=== PATIENT | male | born 1935 | race Caucasian/White ===

== ENCOUNTER 2020-08-25 10:28 | Inpatient (IN) ==
[2020-08-25] MEDS ORDERED: HYDROmorphone 2 MG/1 ML VIAL IV STA (10:52)
[2020-08-25] MEDS ORDERED: ONDANSETRON 4 MG/2 ML VIAL IV STA (10:52)
[2020-08-25 11:02] LABS: Basophils % 0.6 % (0.0-0.8); Eosinophils # 0.4 10*3/uL (0.0-0.87); Eosinophils % 5.3 % (0.00-10.9); Hematocrit 33.7 VOL% (42.0-52.0); Hemoglobin 11.8 GM/DL (14.0-18.0); Immature Granulocytes % 0.4 %; Immature Granulocytes Absolute 0.03 #; Lymphocytes % 14.4 % (21.2-54.2); Mean Corpuscular Volume 93.9 FL (87-102); Mean Platelet Volume 9.4 FL (9.6-12.0); Monocytes % 10.1 % (1.7-12.7); Neutrophils % 69.2 % (38.7-73.9); Platelet Count 153 T/CUMM (130-400); Red Blood Count 3.59 MC/CUMM (3.8-5.5); White Blood Count 6.8 T/CUMM (4-12)
[2020-08-25 11:09] LABS: INR 1.1; PT Patient Result 12.1 SECS (9.8-11.9); Partial Thromboplastin Time 32.5 SECS (23.9-33.8)
[2020-08-25 11:19] LABS: Albumin 3.2 G/DL (3.4-5.0); Bilirubin,Total 0.8 MG/DL (0.2-1.0); Calcium 8.6 MG/DL (8.5-10.1); Osmolality,Calculated 270.4 MOS/KG (273-304); Potassium 4.4 MMOL/L (3.5-5.1); Total Protein 5.9 G/DL (6.4-8.3)
[2020-08-25] MEDS ORDERED: DEXTROSE 50% 25 GM/50 ML VIAL IV PRN (12:17)
[2020-08-25] MEDS ORDERED: GLUCAGON 1 MG VIAL IM PRN (12:17)
[2020-08-25] MEDS ORDERED: hydrALAZINE 20 MG/1 ML VIAL IV PRN (12:17)
[2020-08-25] MEDS: SODIUM CHLORIDE 0.9% 1,000 ML IV SCH ×2 (16:09→22:18)
[2020-08-25] MEDS: MORPHINE 4 MG/1 ML VIAL IV PRN (16:19)
[2020-08-25] MEDS: ONDANSETRON 4 MG/2 ML VIAL IV PRN ×2 (16:19→22:01)
[2020-08-25 23:59] LABS: Bacteria,Urine Occasional /HPF (Few); Bilirubin,Urine Negative (Negative); Blood, Urine Negative (Negative); Glucose,Urine (UA) Negative (Negative); Hyaline Casts,Urine 8 /LPF (0-3); Ketones,Urine 5 mg/dL (Negative); Mucus,Urine Occasional /LPF (Occasional); Nitrite,Urine Negative (Negative); Protein,Urine Negative; RBC,Urine 5 /HPF (0-4); Urine Appearance CLEAR (Clear); Urine Color Yellow (Yellow); Urine Specific Gravity 1.014 (1.001-1.035); Urine Urobilinogen < 2.0 EU/DL (0.2-1.0); WBC,Urine <1 /HPF (0-6)
[2020-08-26] MEDS: MORPHINE 4 MG/1 ML VIAL IV PRN (01:57)
[2020-08-26] MEDS: ONDANSETRON 4 MG/2 ML VIAL IV PRN (04:03)
[2020-08-26 05:50] LABS: Basophils % 0.1 % (0.0-0.8); Hematocrit 35.9 VOL% (42.0-52.0); Hemoglobin 12.9 GM/DL (14.0-18.0); Immature Granulocytes % 0.8 %; Immature Granulocytes Absolute 0.12 #; Lymphocytes # 0.9 10*3/uL (1.4-4.0); Lymphocytes % 5.9 % (21.2-54.2); Mean Corpuscular HGB Conc 35.9 GM/DL (32-36); Mean Corpuscular Volume 91.6 FL (87-102); Mean Platelet Volume 9.2 FL (9.6-12.0); Monocytes % 5.5 % (1.7-12.7); Neutrophils % 87.7 % (38.7-73.9); Platelet Count 182 T/CUMM (130-400); Red Blood Count 3.92 MC/CUMM (3.8-5.5); Red Cell Distribution Width 12.9 % (9.3-17.3); White Blood Count 15.3 T/CUMM (4-12)
[2020-08-26 06:26] LABS: Albumin 3.5 G/DL (3.4-5.0); Bilirubin,Total 1.9 MG/DL (0.2-1.0); Osmolality,Calculated 274.4 MOS/KG (273-304); Thyroid Stimulating Hormone 0.897 uIU/ml (0.358-3.74); Total Protein 6.7 G/DL (6.4-8.3)
[2020-08-26] MEDS ORDERED: ceFAZolin 2,000 MG in PREMIX 1 EACH IV ONE (07:15)
[2020-08-26] MEDS ORDERED: fentaNYL 100 MCG/2 ML VIAL ONE (08:25)
[2020-08-26] MEDS ORDERED: SUCCINYLCHOLINE 200 MG/10 ML VIAL ONE (08:29)
[2020-08-26] MEDS ORDERED: LIDOCAINE 2% 5 ML VIAL ONE (08:29)
[2020-08-26] MEDS ORDERED: ROCURONIUM 50 MG/5 ML VIAL IV ONE (08:29)
[2020-08-26] MEDS ORDERED: FAMOTIDINE 20 MG/2 ML VIAL IV ONE (08:30)
[2020-08-26] MEDS ORDERED: ONDANSETRON 4 MG/2 ML VIAL IV ONE (08:31)
[2020-08-26] MEDS ORDERED: SCOPOLAMINE 1.5 MG PATCH TRANSDERM ONE (08:58)
[2020-08-26] MEDS ORDERED: propofoL 200 MG/20 ML VIAL IV ONE (09:01)
[2020-08-26] MEDS ORDERED: ETOMIDATE 40 MG/20 ML VIAL IV ONE (09:01)
[2020-08-26] MEDS ORDERED: oxyCODONE/ACETAMINOPHEN 5-325 MG TABLET PO PRN (09:24)
[2020-08-26] MEDS ORDERED: MAGNESIUM HYDROXIDE SUSP 30 ML UDCUP PO PRN (09:24)
[2020-08-26] MEDS ORDERED: PHENYLEPHRINE 1 MG/10 ML SYRINGE IV ONE ×3 (09:25→10:05)
[2020-08-26] MEDS ORDERED: DEXAMETHASONE 4 MG/1 ML VIAL ONE (09:28)
[2020-08-26] MEDS ORDERED: ONDANSETRON 4 MG/2 ML VIAL ONE (09:28)
[2020-08-26] MEDS ORDERED: SEVOFLURANE 1 UNIT/15 MINUTE INH ONE (09:49)
[2020-08-26] MEDS ORDERED: SUGAMMADEX 200 MG/2 ML VIAL IV ONE (09:51)
[2020-08-26] MEDS ORDERED: BACITRACIN OINT 0.9 GM PACK TOP ONE (09:54)
[2020-08-26] MEDS ORDERED: LACTATED RINGERS 1,000 ML IV ONE (10:06)
[2020-08-26] MEDS ORDERED: MEPERIDINE 25 MG/1 ML VIAL IV PRN (10:39)
[2020-08-26] MEDS ORDERED: ONDANSETRON 4 MG/2 ML VIAL IV PRN (10:39)
[2020-08-26] MEDS ORDERED: PROMETHAZINE INJ 25 MG in SODIUM CHLORIDE 0.9% 50 ML IV PRN (10:39)
[2020-08-26] MEDS ORDERED: diphenhydrAMINE 50 MG/1 ML VIAL IV PRN (10:39)
[2020-08-26 10:47] LABS: Bilirubin,Urine Negative (Negative); Blood, Urine Large mg/dL (Negative); Glucose,Urine (UA) 50 mg/dL (Negative); Ketones,Urine 20 mg/dL (Negative); Nitrite,Urine Negative (Negative); Protein,Urine Negative; RBC,Urine 326 /HPF (0-4); Squamous Epithelial Cell,Urine Occasional /HPF (0-10); Urine Appearance CLEAR (Clear); Urine Color Yellow (Yellow); Urine Specific Gravity 1.013 (1.001-1.035); WBC,Urine 2 /HPF (0-6)
[2020-08-26] MEDS ORDERED: clonazePAM 0.5 MG TABLET PO PRN (12:05)
[2020-08-26] MEDS: PANTOPRAZOLE 40 MG TABLET PO SCH (12:58)
[2020-08-26] MEDS: ceFAZolin 2,000 MG in PREMIX 1 EACH IV SCH (16:00)
[2020-08-26] MEDS: CITALOPRAM 20 MG TABLET PO SCH (16:00)
[2020-08-26] MEDS: DOCUSATE SODIUM 100 MG CAPSULE PO SCH (20:31)
[2020-08-26] MEDS: LACTATED RINGERS 1,000 ML IV SCH (21:30)
[2020-08-27] MEDS ORDERED: ceFAZolin 2,000 MG in PREMIX 1 EACH IV SCH (00:30)
[2020-08-27] MEDS: ceFAZolin 2,000 MG in PREMIX 1 EACH IV SCH (00:38)
[2020-08-27 05:34] LABS: Calcium 8.6 MG/DL (8.5-10.1); Osmolality,Calculated 273.2 MOS/KG (273-304); Potassium 3.8 MMOL/L (3.5-5.1)
[2020-08-27 05:40] LABS: Basophils % 0.1 % (0.0-0.8); Hematocrit 28.1 VOL% (42.0-52.0); Immature Granulocytes % 0.6 %; Immature Granulocytes Absolute 0.09 #; Lymphocytes # 1.2 10*3/uL (1.4-4.0); Lymphocytes % 7.8 % (21.2-54.2); Mean Corpuscular HGB Conc 35.9 GM/DL (32-36); Mean Corpuscular Volume 91.8 FL (87-102); Mean Platelet Volume 9.6 FL (9.6-12.0); Neutrophils % 80.5 % (38.7-73.9); Platelet Count 166 T/CUMM (130-400); Red Cell Distribution Width 13.1 % (9.3-17.3); White Blood Count 14.9 T/CUMM (4-12)
[2020-08-27 05:42] LABS: Hemoglobin 10.1 GM/DL (14.0-18.0); Red Blood Count 3.06 MC/CUMM (3.8-5.5)
[2020-08-27] MEDS: FONDAPARINUX 2.5 MG/0.5 ML SYRINGE SUBCUT SCH (05:46)
[2020-08-27] MEDS: LEVOFLOXACIN INJ 500 MG in PREMIX 1 EACH IV SCH (14:08)
[2020-08-27] MEDS: DOCUSATE SODIUM 100 MG CAPSULE PO SCH ×2 (14:09→20:54)
[2020-08-27] MEDS: CITALOPRAM 20 MG TABLET PO SCH (14:09)
[2020-08-27] MEDS: PANTOPRAZOLE 40 MG TABLET PO SCH (14:10)
[2020-08-27] MEDS: ONDANSETRON 4 MG/2 ML VIAL IV PRN (17:02)
[2020-08-27] MEDS: LACTATED RINGERS 1,000 ML IV SCH (17:22)
[2020-08-28] MEDS: FONDAPARINUX 2.5 MG/0.5 ML SYRINGE SUBCUT SCH (05:29)
[2020-08-28 06:09] LABS: Basophils % 0.1 % (0.0-0.8); Eosinophils % 0.1 % (0.00-10.9); Hematocrit 31.3 VOL% (42.0-52.0); Hemoglobin 11.1 GM/DL (14.0-18.0); Immature Granulocytes % 0.7 %; Lymphocytes # 1.1 10*3/uL (1.4-4.0); Lymphocytes % 7.5 % (21.2-54.2); Mean Corpuscular HGB Conc 35.5 GM/DL (32-36); Mean Corpuscular Volume 93.4 FL (87-102); Mean Platelet Volume 9.4 FL (9.6-12.0); Monocytes % 11.4 % (1.7-12.7); Neutrophils % 80.2 % (38.7-73.9); Platelet Count 179 T/CUMM (130-400); Red Blood Count 3.35 MC/CUMM (3.8-5.5); Red Cell Distribution Width 13.2 % (9.3-17.3); White Blood Count 14.2 T/CUMM (4-12)
[2020-08-28 06:29] LABS: Calcium 8.9 MG/DL (8.5-10.1); Osmolality,Calculated 274.2 MOS/KG (273-304); Potassium 4.2 MMOL/L (3.5-5.1)
[2020-08-28] MEDS: PANTOPRAZOLE 40 MG TABLET PO SCH (08:17)
[2020-08-28] MEDS: CITALOPRAM 20 MG TABLET PO SCH (08:17)
[2020-08-28] MEDS: DOCUSATE SODIUM 100 MG CAPSULE PO SCH (08:17)
[2020-08-28] MEDS: LEVOFLOXACIN INJ 500 MG in PREMIX 1 EACH IV SCH (08:17)
[2020-08-28] MEDS ORDERED: hydroCHLOROthiazide 12.5 MG CAPSULE PO SCH (09:00)
[2020-08-28] MEDS ORDERED: carvediloL 12.5 MG TABLET PO SCH (09:00)
[2020-08-28] MEDS ORDERED: CLOPIDOGREL 75 MG TABLET PO SCH (09:00)
[2020-08-28] MEDS ORDERED: amLODIPine 5 MG TABLET PO SCH (09:00)
[2020-08-28] MEDS ORDERED: OLMESARTAN 20 MG TABLET PO SCH (09:00)
[2020-08-28] MEDS ORDERED: EZETIMIBE 10 MG TABLET PO SCH (09:00)
[2020-08-28 11:19] VITALS: BP 125/71
[2020-08-28] MEDS ORDERED: ROSUVASTATIN 20 MG TABLET PO SCH (21:00)
== END 2020-08-28 14:24 | disposition swing bed (61) | DRG 480 ==
LOC: N.ED 10:28 → N.EDINP 13:41 → N.3E 17:05
PROVIDERS: ADMIT Internal Medicine; ATTEND Internal Medicine

== ENCOUNTER 2020-08-29 15:46 | Inpatient (IN) ==
[2020-08-29] MEDS ORDERED: SODIUM CHLORIDE 0.9% 1,000 ML IV STA (16:18)
[2020-08-29 16:42] LABS: Basophils % 0.1 % (0.0-0.8); Eosinophils # 0.1 10*3/uL (0.0-0.87); Eosinophils % 0.8 % (0.00-10.9); Hematocrit 22.5 VOL% (42.0-52.0); Hemoglobin 7.9 GM/DL (14.0-18.0); Immature Granulocytes % 0.5 %; Immature Granulocytes Absolute 0.05 #; Lymphocytes % 10.4 % (21.2-54.2); Mean Corpuscular HGB Conc 35.1 GM/DL (32-36); Mean Corpuscular Volume 95.7 FL (87-102); Mean Platelet Volume 9.7 FL (9.6-12.0); Neutrophils % 76.2 % (38.7-73.9); Platelet Count 144 T/CUMM (130-400); Red Blood Count 2.35 MC/CUMM (3.8-5.5); Red Cell Distribution Width 13.7 % (9.3-17.3); White Blood Count 9.2 T/CUMM (4-12)
[2020-08-29 17:07] LABS: Albumin 2.4 G/DL (3.4-5.0); Calcium 7.6 MG/DL (8.5-10.1); Osmolality,Calculated 294.4 MOS/KG (273-304); Total Protein 4.6 G/DL (6.4-8.3)
[2020-08-29 17:20] LABS: Bacteria,Urine Occasional /HPF (Few); Bilirubin,Urine Negative (Negative); Blood, Urine Moderate mg/dL (Negative); Glucose,Urine (UA) Negative (Negative); Hyaline Casts,Urine 17 /LPF (0-3); Ketones,Urine Negative (Negative); Mucus,Urine Occasional /LPF (Occasional); Nitrite,Urine Negative (Negative); Protein,Urine Negative; RBC,Urine 4 /HPF (0-4); Urine Appearance CLEAR (Clear); Urine Color Yellow (Yellow); Urine Specific Gravity 1.018 (1.001-1.035); Urine Urobilinogen < 2.0 EU/DL (0.2-1.0); WBC,Urine 4 /HPF (0-6)
[2020-08-29] MEDS ORDERED: AZITHROMYCIN INJ 500 MG in SODIUM CHLORIDE 0.9% 250 ML IV STA (17:38)
[2020-08-29] MEDS ORDERED: cefTRIAXone 1,000 MG in SODIUM CHLORIDE 0.9% 100 ML IV STA (17:38)
[2020-08-29] MEDS ORDERED: ONDANSETRON 4 MG/2 ML VIAL IV PRN (19:23)
[2020-08-29] MEDS ORDERED: GLUCAGON 1 MG VIAL IM PRN (19:23)
[2020-08-29] MEDS ORDERED: ACETAMINOPHEN 325 MG TABLET PO PRN (19:23)
[2020-08-29] MEDS ORDERED: DEXTROSE 50% 25 GM/50 ML VIAL IV PRN (19:23)
[2020-08-29] MEDS ORDERED: SODIUM CHLORIDE 0.9% 1,000 ML IV PRN (19:25)
[2020-08-29] MEDS ORDERED: clonazePAM 0.5 MG TABLET PO PRN (19:29)
[2020-08-29] MEDS ORDERED: hydrALAZINE 20 MG/1 ML VIAL IV PRN (19:33)
[2020-08-29] MEDS: ROSUVASTATIN 20 MG TABLET PO SCH (22:27)
[2020-08-29] MEDS: GABAPENTIN 300 MG CAPSULE PO SCH (22:27)
[2020-08-29] MEDS: SODIUM CHLORIDE 0.9% 1,000 ML IV SCH (22:28)
[2020-08-30 05:53] LABS: Basophils % 0.1 % (0.0-0.8); Eosinophils # 0.2 10*3/uL (0.0-0.87); Eosinophils % 2.1 % (0.00-10.9); Hematocrit 28.6 VOL% (42.0-52.0); Hemoglobin 9.7 GM/DL (14.0-18.0); Immature Granulocytes % 0.5 %; Immature Granulocytes Absolute 0.04 #; Lymphocytes % 13.6 % (21.2-54.2); Mean Corpuscular HGB Conc 33.9 GM/DL (32-36); Mean Corpuscular Volume 94.7 FL (87-102); Mean Platelet Volume 10.2 FL (9.6-12.0); Monocytes % 12.6 % (1.7-12.7); Neutrophils % 71.1 % (38.7-73.9); Platelet Count 132 T/CUMM (130-400); Red Blood Count 3.02 MC/CUMM (3.8-5.5); White Blood Count 7.6 T/CUMM (4-12)
[2020-08-30 06:15] LABS: Albumin 2.4 G/DL (3.4-5.0); Bilirubin,Total 1.5 MG/DL (0.2-1.0); Calcium 7.8 MG/DL (8.5-10.1); Osmolality,Calculated 291.3 MOS/KG (273-304)
[2020-08-30] MEDS: SODIUM CHLORIDE 0.9% 1,000 ML IV SCH ×2 (07:42→21:05)
[2020-08-30] MEDS: EZETIMIBE 10 MG TABLET PO SCH (08:59)
[2020-08-30] MEDS: GABAPENTIN 300 MG CAPSULE PO SCH ×2 (08:59→21:05)
[2020-08-30] MEDS: CHOLECALCIFEROL 1,000 UNIT TABLET PO SCH (08:59)
[2020-08-30] MEDS: CITALOPRAM 20 MG TABLET PO SCH (09:00)
[2020-08-30] MEDS: PANTOPRAZOLE 40 MG VIAL IV SCH (09:17)
[2020-08-30] MEDS: ASPIRIN EC 81 MG TABLET PO SCH (13:40)
[2020-08-30] MEDS: CLOPIDOGREL 75 MG TABLET PO SCH (15:36)
[2020-08-30] MEDS: cefTRIAXone 1,000 MG in SYRINGE 1 EACH IV SCH (17:05)
[2020-08-30] MEDS: AZITHROMYCIN 250 MG TABLET PO SCH (17:07)
[2020-08-30] MEDS: ENOXAPARIN 40 MG/0.4 ML SYRINGE SUBCUT SCH (21:05)
[2020-08-30] MEDS: ROSUVASTATIN 20 MG TABLET PO SCH (21:05)
[2020-08-31] MEDS: SODIUM CHLORIDE 0.9% 1,000 ML IV SCH ×2 (04:50→10:35)
[2020-08-31 06:31] LABS: Albumin 2.1 G/DL (3.4-5.0); Calcium 7.6 MG/DL (8.5-10.1); Osmolality,Calculated 287.3 MOS/KG (273-304); Total Protein 4.7 G/DL (6.4-8.3)
[2020-08-31] MEDS: CITALOPRAM 20 MG TABLET PO SCH (10:27)
[2020-08-31] MEDS: ASPIRIN EC 81 MG TABLET PO SCH (10:27)
[2020-08-31] MEDS: EZETIMIBE 10 MG TABLET PO SCH (10:27)
[2020-08-31] MEDS: GABAPENTIN 300 MG CAPSULE PO SCH ×2 (10:27→20:52)
[2020-08-31] MEDS: CLOPIDOGREL 75 MG TABLET PO SCH (10:27)
[2020-08-31] MEDS: CHOLECALCIFEROL 1,000 UNIT TABLET PO SCH (10:27)
[2020-08-31] MEDS: PANTOPRAZOLE 40 MG VIAL IV SCH (10:30)
[2020-08-31] MEDS: AZITHROMYCIN 250 MG TABLET PO SCH (18:09)
[2020-08-31] MEDS: cefTRIAXone 1,000 MG in SYRINGE 1 EACH IV SCH (18:09)
[2020-08-31] MEDS: ENOXAPARIN 40 MG/0.4 ML SYRINGE SUBCUT SCH (20:52)
[2020-08-31] MEDS: ROSUVASTATIN 20 MG TABLET PO SCH (20:52)
[2020-09-01] MEDS: SODIUM CHLORIDE 0.9% 1,000 ML IV SCH ×2 (00:01→11:43)
[2020-09-01 07:54] LABS: Basophils % 0.4 % (0.0-0.8); Eosinophils # 0.6 10*3/uL (0.0-0.87); Eosinophils % 6.9 % (0.00-10.9); Hematocrit 30.3 VOL% (42.0-52.0); Hemoglobin 10.4 GM/DL (14.0-18.0); Immature Granulocytes % 0.8 %; Immature Granulocytes Absolute 0.07 #; Lymphocytes # 1.1 10*3/uL (1.4-4.0); Mean Corpuscular HGB Conc 34.3 GM/DL (32-36); Mean Corpuscular Volume 94.7 FL (87-102); Mean Platelet Volume 9.7 FL (9.6-12.0); Neutrophils % 68.9 % (38.7-73.9); Platelet Count 149 T/CUMM (130-400); Red Cell Distribution Width 13.9 % (9.3-17.3); White Blood Count 8.4 T/CUMM (4-12)
[2020-09-01 08:27] LABS: Calcium 7.7 MG/DL (8.5-10.1); Osmolality,Calculated 280.4 MOS/KG (273-304)
[2020-09-01 08:31] LABS: Albumin 2.2 G/DL (3.4-5.0); Bilirubin,Total 2.6 MG/DL (0.2-1.0); Calcium 7.9 MG/DL (8.5-10.1); Osmolality,Calculated 278.5 MOS/KG (273-304); Total Protein 5.1 G/DL (6.4-8.3)
[2020-09-01] MEDS: CLOPIDOGREL 75 MG TABLET PO SCH (09:54)
[2020-09-01] MEDS: ASPIRIN EC 81 MG TABLET PO SCH (09:54)
[2020-09-01] MEDS: GABAPENTIN 300 MG CAPSULE PO SCH (09:55)
[2020-09-01] MEDS: CHOLECALCIFEROL 1,000 UNIT TABLET PO SCH (09:55)
[2020-09-01] MEDS: PANTOPRAZOLE 40 MG VIAL IV SCH (09:55)
[2020-09-01] MEDS: CITALOPRAM 20 MG TABLET PO SCH (09:55)
[2020-09-01] MEDS: EZETIMIBE 10 MG TABLET PO SCH (09:55)
[2020-09-01] MEDS ORDERED: POTASSIUM CHLORIDE 20 MEQ TABLET PO ONE (10:30)
[2020-09-01 15:42] VITALS: BP 148/72
[2020-09-01] MEDS: cefTRIAXone 1,000 MG in SYRINGE 1 EACH IV SCH (17:26)
[2020-09-01] MEDS: AZITHROMYCIN 250 MG TABLET PO SCH (17:26)
== END 2020-09-01 17:30 | DRG 193 ==
LOC: EDBD → EDUNIT# → N.ED 15:46 → N.EDINP 19:22 → N.3E 21:33
PROVIDERS: ADMIT Internal Medicine; ATTEND Internal Medicine